=== PATIENT | female | born 1985 | race Two or more races ===

== ENCOUNTER 2022-12-28 03:53 | Emergency (ER) | payer BC, MEDICAID ==
[~2022-12-28] VITALS: Ht 167.6 cm; Wt 177.0 kg
[2022-12-28 09:54] VITALS: BP 140/88; PULSE 94; RESP 15; TEMP 98; O2SAT 99
== END 2022-12-28 09:58 | disposition home or self-care (01) ==
LOC: ER 03:53 → EDBD 03:53 → ER 09:56
DX: S06.0X0A Concussion without loss of consciousness, initial encounter (principal); F17.210 Nicotine dependence, cigarettes, uncomplicated; X58.XXXA Exposure to other specified factors, initial encounter; Y93.89 Activity, other specified; Y92.89 Other specified places as the place of occurrence of the external cause; Y99.8 Other external cause status
CPT/HCPCS: 70450; 72125; 73130